=== PATIENT | male | born 1980 | race Caucasian/White ===

== ENCOUNTER → 2019-02-28 | Outpatient (CLI) | payer BC ==
--- NOTE | 2019-02-28 14:06 | ECHOS ---
STRESS ECHOCARDIOGRAM INDICATIONS.: Hypertension, chest pain. MEDICATIONS: Lisinopril, Montelukast, omeprazole, Claritin. BASELINE HEART RATE: 71 BASELINE BLOOD PRESSURE: 126/82 MAXIMUM HEART RATE: 162 MAXIMUM BLOOD PRESSURE: 187/68 85% MPHR: 155 100% MPHR: 182 METS: 11.5 MAXIMUM STAGE REACHED: 4 TOTAL EXERCISE TIME: 10:00 CLINICAL INFORMATION: Patient was exercised for a total period of 10 minutes. Peak heart rate of 162 was achieved. Maximum blood pressure of 187/68 mmHg was noted. Resting EKG shows normal sinus rhythm with normal HI interval and QRS duration and normal ST-T waves. No ST- segment depression suggestive of ischemia was noted. Occasional PVCs are noted. The baseline echocardiographic images reveals normal left ventricular chamber size with normal left ventricular systolic function in the immediate postexercise period, normal increase in the wall thickness and contractility is noted. FINAL IMPRESSION: This stress echocardiographic study is negative for stress-induced ischemia. EKG portion of the stress test is not suggestive of ischemia. Patient's exercise tolerance is normal. MMODL / IJN: [id number] /
== END | disposition home or self-care (01) ==
LOC: RADNMMAIN 09:16
PROVIDERS: ATTEND Internal Medicine
DX: R07.9 Chest pain, unspecified (principal)
CPT/HCPCS: 93351; Q9950

== ENCOUNTER → 2019-08-03 | Outpatient (CLI) | payer BC ==
--- NOTE | 2019-08-03 20:43 | XR ---
EXAMINATION TYPE: XR wrist complete RT DATE OF EXAM: 08/03/2019 COMPARISON: NONE HISTORY: 39-year-old male sprain of right wrist after fall 1.5 weeks ago. TECHNIQUE: 4 views FINDINGS: The radiocarpal and distal radial ulnar joint as well as the midcarpal compartment appear intact. No acute fracture, subluxation, or dislocation is seen. IMPRESSION: No acute osseous abnormality seen.
== END | disposition home or self-care (01) ==
LOC: RADXRMAIN 16:28
PROVIDERS: ATTEND Internal Medicine
DX: S63.501A Unspecified sprain of right wrist, initial encounter (principal)

== ENCOUNTER 2021-08-10 03:44 | Emergency (ER) | payer OTHER, BC ==
[2021-08-10 03:51] VITALS: RESP 18; TEMP 98.1
--- NOTE | 2021-08-10 06:40 | XR ---
EXAM: XR Left Elbow Complete, 3 or More Views CLINICAL HISTORY: ITS.REASON XR Reason: pain TECHNIQUE: Frontal, lateral and oblique views of the left elbow. COMPARISON: No relevant prior studies available. FINDINGS: Bones/joints: Unremarkable. No acute fracture. No dislocation. Soft tissues: Unremarkable. IMPRESSION: Normal left elbow x-rays.
--- NOTE | 2021-08-10 06:40 | XR ---
EXAM: XR Right Knee, 3 Views CLINICAL HISTORY: ITS.REASON XR Reason: pain TECHNIQUE: Three views of the right knee. COMPARISON: No relevant prior studies available. FINDINGS: Bones/joints: Unremarkable. No acute fracture. No dislocation. Soft tissues: Unremarkable. IMPRESSION: Normal right knee x-rays.
[2021-08-10] MEDS ORDERED: KETOROLAC 15 MG/ML 1 ML VIAL IM STA (06:57)
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
[2021-08-10 07:24] VITALS: BP 129/86; PULSE 65
== END 2021-08-10 07:27 | disposition home or self-care (01) ==
LOC: EC 03:44
DX: S86.911A Strain of unspecified muscle(s) and tendon(s) at lower leg level, right leg, initial encounter (principal); S53.402A Unspecified sprain of left elbow, initial encounter; I10 Essential (primary) hypertension; V49.60XA Unspecified car occupant injured in collision with unspecified motor vehicles in traffic accident, initial encounter
CPT/HCPCS: 73080; 73562; 99284; 96372; J1885

== ENCOUNTER → 2021-08-27 | Outpatient (CLI) | payer BC ==
--- NOTE | 2021-08-28 09:11 | CT ---
EXAMINATION TYPE: CT elbow LT wo con CT DLP: 223.3 mGycm, Automated exposure control for dose reduction was used. DATE OF EXAM: 08/27/2021 4:28 PM COMPARISON: None CLINICAL INDICATION:Male, 41 years old with history of M25.522 pain in left elbow, pain TECHNIQUE: Axial images were obtained of the left elbow without the use of IV contrast. Additional c oronal and sagittal reformatted images and soft tissue and bone window were obtained for review. 3-D reconstruction was created on a separate workstation. FINDINGS: There is no evidence of fracture, subluxation, or dislocation. No significant soft tissue swelling or joint effusion is identified. No focal muscular atrophy or edema is identified. No radiop aque foreign body identified. Sclerotic focus within the capitellum of the distal humerus consistent bony island. Mild osteophyte formation of the coronoid process of the ulna which extends towards the trochlea is approximately 1 to 2 mm away. IMPRESSION: Small osteophyte formation of the coronoid process of the ulna which is in close approximation to the trochlea. No additional findings to correlate with patient's pain. Consider evaluation with MRI elbo w for acute edema.
== END | disposition home or self-care (01) ==
LOC: RADCTMAIN 15:35
PROVIDERS: ATTEND Internal Medicine
DX: M25.722 Osteophyte, left elbow (principal)

== ENCOUNTER → 2021-10-22 | Outpatient (CLI) | payer BC ==
--- NOTE | 2021-10-23 04:05 | MR ---
EXAMINATION TYPE: MR ankle LT wo con DATE OF EXAM: 10/22/2021 COMPARISON: 02/18/2016 HISTORY: Left ankle pain and swelling for 8 years. Multiplanar multiecho imaging of the left ankle with no contrast. There is mild subcutaneous edema around the medial aspect of the ankle. Ankle mortise is anatomic. No fracture seen. The collateral ligaments appear intact. The Achilles tendon is intact. Plantar fascia appears intact. The medial and lateral flexor tendons a re intact. There is slight increased ankle joint fluid. No evidence of focal bone destruction. IMPRESSION: Slight increased joint fluid that could be minimal synovitis without change. Mild subcutaneous edema around the ankle. No evidence of ligament or tendon tear. No fracture.
== END | disposition home or self-care (01) ==
LOC: RADMRIMAIN 20:03
PROVIDERS: ATTEND Orthopaedic Surgery Foot and Ankle Surgery
DX: R60.0 Localized edema (principal)

== ENCOUNTER 2022-03-02 09:49 | Emergency (ER) | payer BC ==
[2022-03-02 10:18] VITALS: RESP 18; TEMP 97.6
--- NOTE | 2022-03-02 10:22 | ED ---
Dizziness HPI - General Chief Complaint: Dizziness Stated Complaint: Dizziness Time Seen by Provider: 03/02/22 10:12 Source: patient, family, RN notes reviewed Mode of arrival: wheelchair Limitations: no limitations - History of Present Illness Initial Comments: This is a 42 year old male who presents to the emergency department for dizziness beginning 2 days ago. States that when he woke up that morning he experienced a room spinning sensation. He proceeded to lay on his bathroom floor for 4 hours. He then took a nap later in the day and when he woke up, he had the room spinning sensation again with associated ear pressure and vomiting. He went to [facility] urgent care and was told that he had fluid in his ear, but no infection. He was prescribed meclizine with minor improvement. Also reports numbness on the side of both hands and feeling unsteady on his feet. He has been seeing a chiropractor for neck pain, and wonders if this is also related. His PCP instructed him to come to the emergency department. Denies any fevers, chills, sore throat, cough, dyspnea, chest pain, palpitations, abdominal pain, diarrhea, or headaches. MD Complaint: dizziness Onset/Timin -: days(s) Timing: awoke with symptoms Description: "room spinning" History of Same: No History of Trauma: No - Related Data Home Medications Medication Instructions Recorded Confirmed Atorvastatin Calcium [Lipitor] 40 mg PO DAILY 03/02/22 03/02/22 Meclizine [Antivert] 25 mg PO Q6H PRN 03/02/22 03/02/22 Montelukast Sodium [Singulair] 10 mg PO HS 03/02/22 03/02/22 lisinopriL [Prinivil] 10 mg PO HS 03/02/22 03/02/22 Previous Rx's Medication Instructions Recorded Metoclopramide [Reglan] 10 mg PO Q6H PRN #20 tab 03/02/22 Allergies Allergy/AdvReac Type Severity Reaction Status Date / Time No Known Allergies Allergy Verified 03/02/22 11:53 Review of Systems ROS Statement: Those systems with pertinent positive or pertinent negative responses have been documented in the HPI. ROS Other: All systems not noted in ROS Statement are negative. Past Medical History Past Medical History: Hypertension History of Any Multi-Drug Resistant Organisms: None Reported Past Surgical History: No Surgical Hx Reported Past Psychological History: No Psychological Hx Reported Smoking Status: Never smoker Past Alcohol Use History: Occasional Past Drug Use History: None Reported General Exam Limitations: no limitations General appearance: alert, in no apparent distress Head exam: Present: atraumatic, normocephalic, normal inspection Eye exam: Present: normal appearance, PERRL, EOMI, other (Horizontal nystagmus). Absent: scleral icterus, conjunctival injection, periorbital swelling Expanded TM/Canal exam: Effusion: Right TM, Left TM Respiratory exam: Present: normal lung sounds bilaterally. Absent: respiratory distress, wheezes, rales, rhonchi, stridor Cardiovascular Exam: Present: regular rate, normal rhythm, normal heart sounds. Absent: systolic murmur, diastolic murmur, rubs, gallop, clicks Neurological exam: Present: alert, oriented X3, CN II-XII intact Psychiatric exam: Present: normal affect, normal mood Skin exam: Present: warm, dry, intact, normal color. Absent: rash Course Vital Signs 03/02/22 03/02/22 03/02/22 10:14 12:11 13:50 Temperature 97.6 F Pulse Rate 83 84 60 Respiratory 18 18 18 Rate Blood Pressure 141/9 148/85 123/67 O2 Sat by Pulse 98 98 97 Oximetry EKG Findings - EKG Comments: EKG Findings:: Sinus rhythm. Ventricular rate 64 beats per minute, WI interval 144 ms, QRS duration 115 milliseconds, QTC 408 ms. Medical Decision Making - Medical Decision Making This is a 42-year-old male who presents to the emergency department for dizziness. Was pt. sent in by a medical professional or institution? @ -No Did you speak to anyone other than the patient for history? @ -His Did you review nursing and triage notes? @ -Agree, accurate with regards to the patient's symptoms. Were old charts reviewed? @ -No Differential Diagnosis? @ -Differential Dizziness: Benign paroxysmal positional Vertigo, Menieres disease, otitis media, acoustic neuroma, vertebrobasilar insufficiency, cerebellar stroke, encephalitis, hypovolemic, arrhythmia, coronary artery syndrome, anemia, this is not meant to be an all-inclusive list EKG interpreted by me (3pts min.)? @ -Sinus rhythm. Ventricular rate 64 bpm, WI interval 144 ms, QRS duration 115 milliseconds, QTC 408 ms. X-rays interpreted by me (1pt min.)? @ -Chest x-ray obtained, my interpretation reveals no localized consolidations or infiltrates. CT interpreted by me (1pt min.)? @ -Computed tomography scan of the brain and C-spine obtained. My inter pretation of the computed tomography scan of the brain identifies no signs of an acute intracranial hemorrhage or mass effect. Computed tomography scan of the C-spine identifies no acute fractures or dislocations. What testing was considered but not performed? (CT, X-rays, U/S, labs)? Why? @ -None What meds were considered but not given? Why? @ -None Did you discuss the management of the patient with other professionals? @ -No Did you reconcile home meds? @ -No Was smoking cessation discussed for >3mins.? @ -No Was critical care preformed (if so, how long)? @ -No Were there social determinants of health that impacted care today? How? (Homelessness, low income, unemployed, alcoholism, drug addiction, transportation, low edu. Level, literacy, decrease access to med. care, fpc, rehab)? @ -No Was there de-escalation of care discussed even if they declined? (Discuss DNR or withdrawal of care, Hospice)? @ -No What co-morbidities impacted this encounter? (DM, HTN, Smoking, COPD, CAD, Cancer, CVA, Hep., AIDS, mental health diagnosis, sleep apnea, morbid obesity)? @ -HTN Was patient admitted / discharged? @ -Discharged. Lab work obtained and found to be nonactionable. Chest x-ray and computed tomography scan of the brain and C-spine revealed no acute findings. Patient tested negative for Covid, influenza, and RSV. Patient does have bilateral ear effusion. He was given IV Reglan and Benadryl, which he states significantly improved his symptoms. The room spinning sensation, intermittent nature of his symptoms, ear effusion, and improvement with medication are consistent with benign positional paroxysmal vertigo. His HINTS exam was negative. Findings and symptoms are not consistent with a central lesion. Patient feels comfortable with discharge home. Prescription for Reglan provided with dosing instructions reviewed. He is instructed to continue taking the meclizine and using the Flonase nasal spray. He was given information for ENT follow-up in the event symptoms persist. We also discussed the half somersault maneuver by Dr. Lauren Greco for additional treatment options. Computed tomography scan of the neck does identify degenerative changes, and given the ongoing neck pain, information for orthopedic follow-up was provided as well. Drug Therapy requiring intensive monitoring for toxicity (Heparin, Nitro, Insulin, Cardizem)? @ -None Were any procedures done? @ -None Diagnosis/symptom? @ -BPPV Acute, or Chronic, or Acute on Chronic? @ -Acute Uncomplicated (without systemic symptoms) or Complicated (systemic symptoms)? @ -Complicated Side effects of treatment? @ -No side effects from medication at this time. Exacerbation, Progression, or Severe Exacerbation] @ -Not applicable Poses a threat to life or bodily function? @ -His symptoms are currently impacting his bodily function with the dizziness and vomiting. Diagnosis/symptom? @ -Neck pain Acute, or Chronic, or Acute on Chronic? @ -Chronic Uncomplicated (without systemic symptoms) or Complicated (systemic symptoms)? @ -Uncomplicated Side effects of treatment? @ -None Exacerbation, Progression, or Severe Exacerbation] @ -Not applicable Poses a threat to life or bodily function? @ -This may impact his ability to function depending on the severity of symptoms. This case was discussed in detail with the attending ED physician. Presentation, findings, and treatment plan discussed in detail as well. - Lab Data Result diagrams: 03/02/22 10:34 03/02/22 10:34 Lab Results 03/02/22 03/02/22 03/02/22 Range/Units 10:34 10:34 10:34 WBC 6.5 (3.8-10.6) k/uL RBC 5.21 (4.30-5.90) m/uL Hgb 14.8 (13.0-17.5) gm/dL Hct 44.3 (39.0-53.0) % MCV 84.9 (80.0-100.0) fL MCH 28.4 (25.0-35.0) pg MCHC 33.5 (31.0-37.0) g/dL RDW 13.0 (11.5-15.5) % Plt Count 306 (150-450) k/uL MPV 7.4 Neutrophils % 52 % Lymphocytes % 39 % Monocytes % 5 % Eosinophils % 2 % Basophils % 0 % Neutrophils # 3.4 (1.3-7.7) k/uL Lymphocytes # 2.5 (1.0-4.8) k/uL Monocytes # 0.3 (0-1.0) k/uL Eosinophils # 0.1 (0-0.7) k/uL Basophils # 0.0 (0-0.2) k/uL PT (9.0-12.0) sec INR (<1.2) Sodium 143 (137-145) mmol/L Potassium 4.0 (3.5-5.1) mmol/L Chloride 111 H (98-107) mmol/L Carbon Dioxide 26 (22-30) mmol/L Anion Gap 6 mmol/L BUN 8 L (9-20) mg/dL Creatinine 0.70 (0.66-1.25) mg/dL Est GFR (CKD-EPI)AfAm >90 (>60 ml/min/1.73 sqM) Est GFR (CKD-EPI)NonAf >90 (>60 ml/min/1.73 sqM) Glucose 94 (74-99) mg/dL Calcium 8.7 (8.4-10.2) mg/dL Total Bilirubin 0.4 (0.2-1.3) mg/dL AST 22 (17-59) U/L ALT 35 (4-49) U/L Alkaline Phosphatase 103 (38-126) U/L Troponin I (0.000-0.034) ng/mL Total Protein 6.7 (6.3-8.2) g/dL Albumin 3.9 (3.5-5.0) g/dL Urine Color Urine Appearance (Clear) Urine pH (5.0-8.0) Ur Specific [place] (1.001-1.035) Urine Protein (Negative) Urine Glucose (UA) (Negative) Urine Ketones (Negative) Urine Blood (Negative) Urine Nitrite (Negative) Urine Bilirubin (Negative) Urine Urobilinogen (<2.0) mg/dL Ur Leukocyte Esterase (Negative) Urine Opiates Screen (NotDetected) Ur Oxycodone Screen (NotDetected) Urine Methadone Screen (NotDetected) Ur Propoxyphene Screen (NotDetected) Ur Barbiturates Screen (NotDetected) U Tricyclic Antidepress (NotDetected) Ur Phencyclidine Scrn (NotDetected) Ur Amphetamines Screen (NotDetected) U Methamphetamines Scrn (NotDetected) U Benzodiazepines Scrn (NotDetected) Urine Cocaine Screen (NotDetected) U Marijuana (THC) Screen (NotDetected) Influenza Type A (PCR) Not Detected (Not Detectd) Influenza Type B (PCR) Not Detected (Not Detectd) RSV (PCR) Not Detected (Not Detectd) SARS-CoV-2 (PCR) Not Detected (Not Detectd) 03/02/22 03/02/22 03/02/22 Range/Units 10:34 10:34 12:23 WBC (3.8-10.6) k/uL RBC (4.30-5.90) m/uL Hgb (13.0-17.5) gm/dL Hct (39.0-53.0) % MCV (80.0-100.0) fL MCH (25.0-35.0) pg MCHC (31.0-37.0) g/dL RDW (11.5-15.5) % Plt Count (150-450) k/uL MPV Neutrophils % % Lymphocytes % % Monocytes % % Eosinophils % % Basophils % % Neutrophils # (1.3-7.7) k/uL Lymphocytes # (1.0-4.8) k/uL Monocytes # (0-1.0) k/uL Eosinophils # (0-0.7) k/uL Basophils # (0-0.2) k/uL PT 10.4 (9.0-12.0) sec INR 1.0 (<1.2) Sodium (137-145) mmol/L Potassium (3.5-5.1) mmol/L Chloride (98-107) mmol/L Carbon Dioxide (22-30) mmol/L Anion Gap mmol/L BUN (9-20) mg/dL Creatinine (0.66-1.25) mg/dL Est GFR (CKD-EPI)AfAm (>60 ml/min/1.73 sqM) Est GFR (CKD-EPI)NonAf (>60 ml/min/1.73 sqM) Glucose (74-99) mg/dL Calcium (8.4-10.2) mg/dL Total Bilirubin (0.2-1.3) mg/dL AST (17-59) U/L ALT (4-49) U/L Alkaline Phosphatase (38-126) U/L Troponin I <0.012 (0.000-0.034) ng/mL Total Protein (6.3-8.2) g/dL Albumin (3.5-5.0) g/dL Urine Color Yellow Urine Appearance Clear (Clear) Urine pH 5.5 (5.0-8.0) Ur Specific [place] 1.018 (1.001-1.035) Urine Protein Negative (Negative) Urine Glucose (UA) Negative (Negative) Urine Ketones Negative (Negative) Urine Blood Negative (Negative) Urine Nitrite Negative (Negative) Urine Bilirubin Negative (Negative) Urine Urobilinogen <2.0 (<2.0) mg/dL Ur Leukocyte Esterase Negative (Negative) Urine Opiates Screen Not Detected (NotDetected) Ur Oxycodone Screen Not Detected (NotDetected) Urine Methadone Screen Not Detected (NotDetected) Ur Propoxyphene Screen Not Detected (NotDetected) Ur Barbiturates Screen Not Detected (NotDetected) U Tricyclic Antidepress Not Detected (NotDetected) Ur Phencyclidine Scrn Not Detected (NotDetected) Ur Amphetamines Screen Not Detected (NotDetected) U Methamphetamines Scrn Not Detected (NotDetected) U Benzodiazepines Scrn Detected H (NotDetected) Urine Cocaine Screen Not Detected (NotDetected) U Marijuana (THC) Screen Not Detected (NotDetected) Influenza Type A (PCR) (Not Detectd) Influenza Type B (PCR) (Not Detectd) RSV (PCR) (Not Detectd) SARS-CoV-2 (PCR) (Not Detectd) - Radiology Data Radiology results: report reviewed, image reviewed Disposition Clinical Impression: BPPV (benign paroxysmal positional vertigo) Disposition: HOME SELF-CARE Instructions (If sedation given, give patient instructions): Vertigo (ED), Benign Paroxysmal Positional Vertigo (ED), Dizziness (ED) Additional Instructions: Return to the emergency department with any new, worsening, or concerning symptoms. Continue to use the meclizine for the vertigo, this can be used in conjunction with the Reglan. You should also continue to use the Flonase nasal spray 1-2 times daily. You can contact the orthopedic provider, Dr. Dangelo, as listed below regarding the problems with your neck. Dr. Joyce is the ear nose and throat provider you may contact to help with the vertigo. You can look up the half somersault maneuver by Dr. Lauren Greco for additional treatment options. Follow up with your primary care provider in 1-2 days. Prescriptions: Metoclopramide [Reglan] 10 mg PO Q6H PRN #20 tab PRN Reason: Vertigo Is patient prescribed a controlled substance at d/c from ED?: No Referrals: Darinel Sosa MD [Primary Care Provider] - 1-2 days Samantha Dangelo DO [Doctor of Osteopathic Medicine] - 1-2 days Roger Castro MD [STAFF PHYSICIAN] - 1-2 days
[2022-03-02 10:57] LABS: Basophils % (A) 0 %; Eosinophils # (A) 0.1 k/uL (0-0.7); Eosinophils % (A) 2 %; HCT 44.3 % (39.0-53.0); HGB 14.8 gm/dL (13.0-17.5); Lymphocytes # (A) 2.5 k/uL (1.0-4.8); Lymphocytes % (A) 39 %; MCH 28.4 pg (25.0-35.0); MCHC 33.5 g/dL (31.0-37.0); MCV 84.9 fL (80.0-100.0); Mean Platelet Volume 7.4; Monocytes # (A) 0.3 k/uL (0-1.0); Monocytes % (A) 5 %; Neutrophils # (A) 3.4 k/uL (1.3-7.7); Neutrophils % (A) 52 %; Platelet Count 306 k/uL (150-450); RBC 5.21 m/uL (4.30-5.90); WBC 6.5 k/uL (3.8-10.6)
--- NOTE | 2022-03-02 11:07 | XR ---
EXAMINATION TYPE: XR chest 2V DATE OF EXAM: 03/02/2022 11:02 AM COMPARISON: None TECHNIQUE: XR chest 2V Frontal and lateral views of the chest. CLINICAL INDICATION:Male, 42 years old with history of dizziness; FINDINGS: Lungs/Pleura: There is no evidence of pleural effusion, focal consolidation, or pneumothorax. Pulmonary vascularity: Unremarkable. Heart/mediastinum: Cardiomediastinal silhouette is unremarkable. Musculoskeletal: No acute osseous pathology. IMPRESSION: No acute cardiopulmonary disease/process.
[2022-03-02 11:09] LABS: ALT 35 U/L (4-49); AST 22 U/L (17-59); African American GFR (CKD) >90 (>60 ml/min/1.73 sqM); Albumin 3.9 g/dL (3.5-5.0); Alkaline Phosphatase 103 U/L (38-126); Anion Gap 6 mmol/L; Blood Urea Nitrogen 8 mg/dL (9-20); Calcium 8.7 mg/dL (8.4-10.2); Carbon Dioxide 26 mmol/L (22-30); Chloride 111 mmol/L (98-107); Glucose 94 mg/dL (74-99); Non-African American GFR(CKD) >90 (>60 ml/min/1.73 sqM); Sodium 143 mmol/L (137-145); Total Bilirubin 0.4 mg/dL (0.2-1.3); Total Protein 6.7 g/dL (6.3-8.2)
[2022-03-02 11:11] LABS: Prothrombin Time 10.4 sec (9.0-12.0)
[2022-03-02] MEDS ORDERED: diphenhydrAMINE 50 MG/ML 1 ML VIAL IVP STA (11:35)
[2022-03-02] MEDS ORDERED: METOCLOPRAMIDE 5 MG/ML 2 ML VIAL IVP STA (11:35)
--- NOTE | 2022-03-02 12:15 | CT ---
EXAMINATION TYPE: CT brain cspine wo con CT DLP: 1885.1 mGycm, Automated exposure control for dose reduction was used. DATE OF EXAM: 03/02/2022 12:03 PM COMPARISON: None CLINICAL INDICATION:Male, 42 years old with history of dizziness; Dizziness and right side head/ear p ressure TECHNIQUE: Brain: Multiple axial CT images of the brain were obtained without IV contrast. Cspine: Axial CT images from the skull base to the inferior aspect of T2 we obtained without intraven ous contrast. Coronal and sagittal reformatted images were also reviewed. FINDINGS: Brain: Extra-axial spaces: No abnormal extra-axial fluid collections. Ventricular system: Within normal limits Cerebral parenchyma: No acute intraparenchymal hemorrhage or mass effect. The tran-white junction is well differentiated. Cerebellum: Unremarkable. Mass effect: No evidence of midline shift. Intracranial vasculature: unremarkable Soft tissues: Normal. Calvarium/osseous structures: No depressed skull fracture. Paranasal sinuses and mastoid air cells: Mild mucosal thickening most pronounced in the right maxilla ry sinus. Visualized orbits: Orbital contents are intact. Cervical spine: Fracture: None. Osseous structures: Minimal degeneration with osteophyte formation and facet and uncovertebral joint arthropathy. Vertebral alignment: Within normal limits. Spinal canal/Neural Foramina: No evidence of significant spinal canal narrowing. No evidence for sign ificant neural foraminal stenosis. Neck soft tissues: Prevertebral soft tissues are within normal limits. Other: The airway is patent. The lung apices are clear. IMPRESSION: 1. No acute intracranial process. No evidence for acute right temporal bone process. 2. No evidence of cervical spine fracture. 3. Mild multilevel degenerative disc disease.
[2022-03-02 12:45] LABS: Appearance,Urine Clear (Clear); Bilirubin,Urine Negative (Negative); Blood,Urine Negative (Negative); Color,Urine Yellow; Glucose,Urine (UA) Negative (Negative); Ketones,Urine Negative (Negative); Leukocyte Esterase,Urine Negative (Negative); Nitrite,Urine Negative (Negative); PH, Urine 5.5 (5.0-8.0); Protein,Urine Negative (Negative); Specific Gravity,Urine 1.018 (1.001-1.035); Urobilinogen,Urine <2.0 mg/dL (<2.0)
[2022-03-02 13:11] LABS: Amphetamine Screen,Urine Not Detected (NotDetected); Barbiturate Screen,Urine Not Detected (NotDetected); Benzodiazepines Screen,Urine Detected (NotDetected); Cocaine Screen,Urine Not Detected (NotDetected); Methadone Screen, Urine Not Detected (NotDetected); Opiate Screen,Urine Not Detected (NotDetected); Oxycodone Screen, Urine Not Detected (NotDetected); Phencyclidine Screen,Urine Not Detected (NotDetected); Tricyclic Antidepressant,Urine Not Detected (NotDetected); Urn Cannabinoid Scrn Not Detected (NotDetected)
[2022-03-02 13:51] VITALS: BP 123/67; PULSE 60
== END 2022-03-02 13:51 | disposition home or self-care (01) ==
LOC: EC 09:49
DX: H81.10 Benign paroxysmal vertigo, unspecified ear (principal); I10 Essential (primary) hypertension; Z79.899 Other long term (current) drug therapy; Z20.822 Contact with and (suspected) exposure to COVID-19
CPT/HCPCS: 36415; 93005; 80053; 84484; 85025; 85610; 81003; 80306; 87636; 71046; 72125; 70450; 99284; 96374; 96375; J1200; J2765

== ENCOUNTER → 2022-09-28 | Outpatient (CLI) | payer BC | END | disposition home or self-care (01) | LOC: LABWHC1 15:26 | PROVIDERS: ATTEND Internal Medicine | DX: Z01.810 Encounter for preprocedural cardiovascular examination (principal) | CPT/HCPCS: 36415; 85730 ==

== ENCOUNTER → 2022-10-08 | Outpatient (CLI) | payer BC | LOC: 3 N SLEEP 16:59 | PROVIDERS: ATTEND Internal Medicine Critical Care Medicine | DX: G47.10 Hypersomnia, unspecified (principal) ==

== ENCOUNTER → 2023-06-10 | Outpatient (CLI) | payer BC ==
--- NOTE | 2023-06-10 17:17 | CA ---
Transthoracic Echo Report Name: Bebeto Mackey Age: 43 Gender: M : 1980 Exam Date: 06/10/2023 15:11 Exam Location: [facility] Ht (in): 72 Wt (lb): 236 Ordering Physician: Darinel Sosa MD Attending/Referring Phys: Darinel Sosa MD Tabulating Machine Mechanic Ruby Ramires RDCS Procedure CPT: Indications: G45.9 TRANSIENT CEREBRAL ISCHEMIC ATTACK, UNSPECIF Cardiac Hx: Technical Quality: Fair Contrast 1: Total Dose (mL): Contrast 2: Total Dose (mL): MEASUREMENTS (Male / Female) Normal Values 2D ECHO LV Diastolic Diameter PLAX 4.3 cm 4.2 - 5.9 / 3.9 - 5.3 cm LV Systolic Diameter PLAX 3.0 cm IVS Diastolic Thickness 1.4 cm 0.6 - 1.0 / 0.6 - 0.9 cm LVPW Diastolic Thickness 1.4 cm 0.6 - 1.0 / 0.6 - 0.9 cm LV Relative Wall Thickness 0.6 RV Internal Dim ED PLAX 2.6 cm LA Volume 60.1 cm??? 18 - 58 / 22 - 52 cm??? LA Volume Index 25.4 cm???/m??? 16 - 28 cm???/m??? M-MODE Aortic Root Diameter MM 3.6 cm LA Systolic Diameter MM 4.0 cm LA Ao Ratio MM 1.1 DOPPLER AV Peak Velocity 141.1 cm/s AV Peak Gradient 8.0 mmHg AV Mean Velocity 85.0 cm/s AV Mean Gradient 3.4 mmHg AV Velocity Time Integral 22.3 cm LVOT Peak Velocity 116.4 cm/s LVOT Peak Gradient 5.4 mmHg LVOT Velocity Time Integral 25.5 cm MV Area PHT 3.1 cm??? Mitral E Point Velocity 99.6 cm/s Mitral A Point Velocity 56.7 cm/s Mitral E to A Ratio 1.8 MV Deceleration Time 245.3 ms MV E' Velocity 10.1 cm/s Mitral E to MV E' Ratio 9.9 TR Peak Velocity 209.7 cm/s TR Peak Gradient 17.6 mmHg Right Ventricular Systolic Press 21.2 mmHg FINDINGS Left Ventricle Moderatly increased left ventricular wall thickness. Left ventricular cavity size normal. Normal left ventricular systolic function with no obvious regional wall motion abnormalities. Left ventricular ejection fraction is estimated at 55-60 %. Grade 1 diastolic dysfunction. Right Ventricle Normal right ventricular size and function. Right ventricular systolic pressure within normal limits. Right Atrium Normal right atrial size. Left Atrium Mildly increased left atrial volume. Mitral Valve Structurally normal mitral valve. Mild mitral regurgitation. Aortic Valve Trileaflet aortic valve. No aortic valve stenosis or regurgitation. Tricuspid Valve Structurally normal tricuspid valve. Mild tricuspid regurgitation. Pulmonic Valve Trace pulmonic regurgitation. Pericardium No pericardial effusion. Aorta Normal size aortic root and proximal ascending aorta. CONCLUSIONS Left ventricular hypertrophy with normal LV function Mild left atrial enlargement Mild mitral regurgitation Previewed by: Dr. Carlos Manuel Carson MD (Electronically Signed) Final Date: 10 June 2023 17:17
--- NOTE | 2023-06-10 18:33 | US ---
EXAMINATION TYPE: US carotid duplex BILAT DATE OF EXAM: 06/10/2023 COMPARISON: NONE CLINICAL INDICATION: Male, 43 years old with history of G45.9 TRANSIENT CEREBRAL ISCHEMIC ATTACK, UNS PECIF; TIA TECHNIQUE: Carotid duplex ultrasound examination. Indirect Doppler criteria was utilized. FINDINGS: EXAM MEASUREMENTS: RIGHT: Peak Systolic Velocity (PSV) cm/sec ----- Right CCA: 90 ----- Right ICA: 104.9 ----- Right ECA: 89.1 ICA/CCA ratio: 1.2 RIGHT: End Diastole cm/sec ----- Right CCA: 21.7 ----- Right ICA: 20.1 ----- Right ECA: 12.2 LEFT: Peak Systolic Velocity (PSV) cm/sec ----- Left CCA: 96.9 ----- Left ICA: 65.4 ----- Left ECA: 75.3 ICA/CCA ratio: 0.7 LEFT: End Diastole cm/sec ----- Left CCA: 22.1 ----- Left ICA: 20.1 ----- Left ECA: 10.2 VERTEBRALS (direction of flow): Right Vertebral: Antegrade Left Vertebral: Antegrade Rhythm: Normal TECHNICAL SUPPORT MANAGER NOTES: No significant stenosis seen IMPRESSION: 1. No carotid bifurcation plaque formation. 2. No hemodynamically significant stenosis based on peak systolic velocities and ratios as well as co mikayla and grayscale imaging of the carotid bifurcations. Criteria for Assigning % of Stenosis / Diameter reduction (Estimation based on the indirect measurements of the internal carotid artery velocities (ICA PSV). 1. Normal (no stenosis)=ICA PSV < 125 cm/s: ratio < 2.0: ICA EDV<40 cm/s. 2. Less than 50% stenosis=ICA PSV < 125 cm/s: ratio < 2.0: ICA EDV<40 cm/s. 3. 50 to 69% stenosis=ICA PSV of 125 to 230 cm/s: ration 2.0 ? 4.0: ICA EDV 40-100 cm/s. 4. Greater than 70% stenosis to near occlusion= ICA PSV > 230 cm/s: ratio > 4.0: ICA EDV > 100 cm/s. 5. Near occlusion= ICA PSV velocities may be low or undetectable: variable ratio and ICA EDV. 6. Total occlusion=unable to detect flow.
== END | disposition home or self-care (01) ==
LOC: RADECHMAIN 15:02
PROVIDERS: ATTEND Internal Medicine
DX: G45.9 Transient cerebral ischemic attack, unspecified (principal); I34.0 Nonrheumatic mitral (valve) insufficiency; I51.7 Cardiomegaly
CPT/HCPCS: 93306; 93880

== ENCOUNTER 2023-07-04 22:09 | Emergency (ER) | payer BC ==
--- NOTE | 2023-07-04 22:25 | ED ---
General Adult HPI - General Chief complaint: Eye Problems Stated complaint: R eye injury Time Seen by Provider: 07/04/23 22:24 Source: patient, RN notes reviewed, old records reviewed Mode of arrival: ambulatory Limitations: no limitations - History of Present Illness Initial comments: 43-year-old male presenting for evaluation of foreign body to the right eye. Patient is otherwise healthy, tetanus is up-to-date. Patient was putting together 2 parts with superglue, when he hammered the magnets together a drop of superglue went directly into his right eye. No metallic foreign body according to the patient. Patient states he can see the superglue when he looks through his right eye. - Related Data Home Medications Medication Instructions Recorded Confirmed Atorvastatin Calcium [Lipitor] 40 mg PO DAILY 03/02/22 03/02/22 Meclizine [Antivert] 25 mg PO Q6H PRN 03/02/22 03/02/22 Montelukast Sodium [Singulair] 10 mg PO HS 03/02/22 03/02/22 lisinopriL [Prinivil] 10 mg PO HS 03/02/22 03/02/22 Previous Rx's Medication Instructions Recorded Metoclopramide [Reglan] 10 mg PO Q6H PRN #20 tab 03/02/22 Erythromycin Ophth Oint [Romycin 1 applic RIGHT EYE QID #3.5 gm 07/04/23 Ophth Oint] Allergies Allergy/AdvReac Type Severity Reaction Status Date / Time No Known Allergies Allergy Verified 03/02/22 11:53 Review of Systems ROS Statement: Those systems with pertinent positive or pertinent negative responses have been documented in the HPI. ROS Other: All systems not noted in ROS Statement are negative. Past Medical History Past Medical History: Hypertension History of Any Multi-Drug Resistant Organisms: None Reported Past Surgical History: Hernia Repair Past Psychological History: No Psychological Hx Reported Smoking Status: Never smoker Past Alcohol Use History: Occasional Past Drug Use History: None Reported General Exam Limitations: no limitations General appearance: alert, in no apparent distress Head exam: Present: atraumatic, normocephalic Eye exam: Present: PERRL, EOMI, other (Droplet of glue central cornea and 1 linear abrasion across the central cornea, negative Davy's test) Respiratory exam: Present: normal lung sounds bilaterally. Absent: respiratory distress, wheezes Cardiovascular Exam: Present: regular rate, normal rhythm GI/Abdominal exam: Absent: distended Course Vital Signs 07/04/23 22:21 Temperature 98 F Pulse Rate 89 Respiratory 18 Rate Blood Pressure 154/93 O2 Sat by Pulse 97 Oximetry Procedures - Forgein Body Removal Eye Site: Right Location in eye(s): Central cornea Anesthetic Used: Proparacaine Eye Exam Technique: Fluorescein Foreign Body Suspected: Other (Superglue) Forgein Body Removal Technique: Cotton Swab, Irrigation Remaining Debris: No Patient Tolerated: well Medical Decision Making - Medical Decision Making Was pt. sent in by a medical professional or institution (, [facility], [facility], urgent care, hospital, or care home...) When possible be specific @ -No Did you speak to anyone other than the patient for history (EMS, parent, family, police, friend...)? What history was obtained from this source @ -No Did you review nursing and triage notes (agree or disagree)? Why? @ -I reviewed and agree with nursing and triage notes Were old charts reviewed (outside hosp., previous admission, EMS record, old EKG, old radiological studies, urgent care reports/EKG's, care home records)? Report findings @ -No old charts were reviewed Differential Diagnosis : Corneal abrasion, eye foreign body, corneal laceration @ -Not applicable EKG interpreted by me (3pts min.). @ -As above X-rays interpreted by me (1pt min.). @ -None done CT interpreted by me (1pt min.). @ -None done U/S interpreted by me (1pt. min.). @ -None done What testing was considered but not performed or refused? (CT, X-rays, U/S, labs)? Why? @ -None What meds were considered but not given or refused? Why? @ -None Did you discuss the management of the patient with other professionals (professionals i.e. , [facility], [facility], lab, RT, psych nurse, psychiatric social worker, dairy manager, teacher, combatant diver officer, binder caser)? Give summary @ -No Was smoking cessation discussed for >3mins.? @ -No Was critical care preformed (if so, how long)? @ -No Were there social determinants of health that impacted care today? How? (Homelessness, low income, unemployed, alcoholism, drug addiction, transportation, low edu. Level, literacy, decrease access to med. care, skilled nursing, rehab)? @ -No Was there de-escalation of care discussed even if they declined (Discuss DNR or withdrawal of care, Hospice)? DNR status @ -No What co-morbidities impacted this encounter? (DM, HTN, Smoking, COPD, CAD, Cancer, CVA, ARF, Chemo, Hep., AIDS, mental health diagnosis, sleep apnea, morbid obesity)? @ -None Was patient admitted / discharged? Hospital course, mention meds given and route, prescriptions, significant lab abnormalities, going to OR and other pertinent info. @43-year-old male with superglue to the right eye. The eye is anesthetized with proparacaine, fluorescein does reveal foreign body which is removed easily with irrigation and cotton swab. There is a very superficial abrasion across the central cornea. Patient is placed on antibiotic ointment. He is given ophthalmology follow-up. Undiagnosed new problem with uncertain prognosis? @ -No Drug Therapy requiring intensive monitoring for toxicity (Heparin, Nitro, Insulin, Cardizem)? @ -No Were any procedures done? @ -Yes, foreign body removal from right eye. Diagnosis/symptom? @ -Eye foreign body, corneal abrasion Acute, or Chronic, or Acute on Chronic? @ -[Acute Uncomplicated (without systemic symptoms) or Complicated (systemic symptoms)? @ -Default Side effects of treatment? @ -No Exacerbation, Progression, or Severe Exacerbation? @ -No Poses a threat to life or bodily function? How? (Chest pain, [place], [place], pneumonia, PE, COPD, DKA, ARF, appy, cholecystitis, CVA, Diverticulitis, Homicidal, Suicidal, threat to staff... and all critical care pts) @ -No Disposition Clinical Impression: Corneal abrasion, Foreign body of cornea Disposition: HOME SELF-CARE Instructions (If sedation given, give patient instructions): Eye Foreign Body (ED), Abrasion (ED) Prescriptions: Erythromycin Ophth Oint [Romycin Ophth Oint] 1 applic RIGHT EYE QID #3.5 gm Is patient prescribed a controlled substance at d/c from ED?: No Referrals: Darinel Sosa MD [Primary Care Provider] - 1-2 days Miladis White MD [STAFF PHYSICIAN] - 1-2 days Time of Disposition: 22:44
[2023-07-04] MEDS: PROPARACAINE 0.5% OPHTH DROPS 15 ML BTL RIGHT EYE STA (22:32)
[2023-07-04] MEDS: FLUORESCEIN STRIPS 1 MG STRIP RIGHT EYE ONE (22:32)
[2023-07-04] MEDS: ERYTHROMYCIN 5 MG/GM OPHTH OINT 1 GM TUBE RIGHT EYE STA (22:54)
[2023-07-04 23:45] VITALS: BP 154/93; PULSE 89; RESP 18; TEMP 98
== END 2023-07-04 22:56 | disposition home or self-care (01) ==
LOC: EC 22:09
DX: T15.01XA Foreign body in cornea, right eye, initial encounter (principal); X58.XXXA Exposure to other specified factors, initial encounter
CPT/HCPCS: 65220; 99283

== ENCOUNTER → 2023-09-20 | Outpatient (CLI) | payer BC ==
--- NOTE | 2023-09-21 07:26 | XR ---
EXAMINATION TYPE: XR shoulder complete RT DATE OF EXAM: 09/20/2023 CLINICAL HISTORY: pain TECHNIQUE: Three views of the right shoulder are obtained. COMPARISON: None FINDINGS: There is no acute fracture/dislocation evident. The acromioclavicular and glenohumeral sally int spaces appear within normal limits. The visualized ribs are intact and unremarkable. IMPRESSION: 1. There is no acute fracture or dislocation. ICD 10 NO FRACTURE, INITIAL EVALUATION
--- NOTE | 2023-09-21 07:36 | XR ---
EXAMINATION TYPE: XR cervical spine w flex/ext DATE OF EXAM: 09/20/2023 TECHNIQUE: Frontal, lateral, oblique, swimmers, and open mouth view of the cervical spine are obtaine d. Additional flexion and extension views obtained. HISTORY: M54.2 CERVICALGIA COMPARISON: None FINDINGS: The cervical spine is visualized in its entirety from C1 thru the top of T1 level, it is s atisfactory in alignment without evidence of acute fracture or dislocation. The pre-vertebral soft t issue appears within normal limits. The C1-C2 articulation is within normal limits on the open mouth view. The oblique images are within normal limits. IMPRESSION: No acute fracture or dislocation is seen in the cervical spine.
== END | disposition home or self-care (01) ==
LOC: RADXRMAIN 15:36
PROVIDERS: ATTEND Internal Medicine
DX: M54.2 Cervicalgia (principal); M25.511 Pain in right shoulder
CPT/HCPCS: 72052

== ENCOUNTER → 2023-10-27 | Outpatient (CLI) | payer BC ==
--- NOTE | 2023-10-27 13:58 | XR ---
EXAMINATION TYPE: XR lumbar spine 2 or 3V DATE OF EXAM: 10/27/2023 1:38 PM CLINICAL INDICATION: Male, 43 years old with history of M54.41 LUMBAGO WITH SCIATICA,RT SIDE; PHH COMPARISON: None TECHNIQUE: XR lumbar spine 2 or 3V - Frontal, lateral and coned in L5-S1 lateral views of the spine. FINDINGS: No evidence of any acute osseous pathology. No evidence of loss of vertebral body height i s seen. There is normal alignment of the lumbar vertebral bodies. Scattered disc space narrowing. Mul tilevel marginal osteophyte formation throughout the visualized spine. There is facet joint arthropat hy throughout the spine. Scattered at least mild neural foraminal stenosis. IMPRESSION: 1. No acute fracture. 2. Mild multilevel disc degeneration.
== END | disposition home or self-care (01) ==
LOC: RADXRMAIN 13:14
PROVIDERS: ATTEND Registered Nurse
DX: M51.16 Intervertebral disc disorders with radiculopathy, lumbar region (principal)
CPT/HCPCS: 72100

== ENCOUNTER → 2023-11-09 | Outpatient (CLI) | payer BC ==
--- NOTE | 2023-11-12 10:58 | US ---
EXAMINATION TYPE: US abdomen complete DATE OF EXAM: 11/09/2023 COMPARISON: NONE CLINICAL INDICATION: Male, 43 years old with history of R10.10 UPPER ABDOMINAL PAIN, UNSPECIFIED; RUQ pain TECHNIQUE: Multiple sonographic images of the abdomen are obtained. Some limitation due to scanning f ields available. FINDINGS: EXAM MEASUREMENTS: Liver Length: 16.1 cm Gallbladder Wall: 0.3 cm CBD: 0.4 cm Spleen: 10.5 cm Right Kidney: 10.9 x 6.7 x 5.9 cm Left Kidney: 11.5 x 5.6 x 5.7 cm Pancreas: obscured by overlying midline bowel gas Liver: scanned intercostally, visualized portions wnl Gallbladder: wnl Evidence for sonographic Paulino's sign: no CBD: visualized portions wnl, limited by overlying bowel gas Spleen: visualized portions wnl, limited by overlying bowel gas Right Kidney: wnl Left Kidney: wnl Upper IVC: wnl Abd Aorta: proximal and mid portions obscured by overlying midline bowel gas, distal portion appears wnl IMPRESSION: 1. No suspicious abdomen ultrasound abnormality [facility], , 11/12/2023 10:56 AM
== END | disposition home or self-care (01) ==
LOC: RADUSWWP 07:45
PROVIDERS: ATTEND Surgery
DX: R10.11 Right upper quadrant pain (principal)
CPT/HCPCS: 76700

== ENCOUNTER → 2023-11-22 | Outpatient (CLI) | payer BC ==
--- NOTE | 2023-11-22 15:50 | NM ---
EXAMINATION TYPE: NM hepatobiliary w EF DATE OF EXAM: 11/22/2023 3:26 PM COMPARISON: Ultrasound 11/09/2023 CLINICAL INDICATION:Male, 43 years old with history of R10.13 epigastric pain; TECHNIQUE: The patient was given 4.98 mCi of Technetium 99m-Mebrofenin as a radiotracer and multiple scintigraphic images were obtained of the abdomen. Gallbladder function was also assessed after the administration of ensure drink and additional scintigraphic images were obtained of the abdomen. A re gion of interest was drawn over the gallbladder and a timing activity curve was generated. The gallbl adder ejection fraction was calculated. FINDINGS: Normal uptake of radiotracer was identified within the liver with excretion into the hepatic and comm on biliary ducts within 240 seconds. There was normal progressive washout of the liver over the cours e of the study. Radiotracer uptake within the gallbladder at 240 minutes as well as small bowel activ ity was identified at 56 minutes. Maximum calculated gallbladder ejection fraction is: 67% at 30 minutes (Normal gallbladder ejection fraction is > 35%) IMPRESSION: 1. Normal hepatobiliary scan. 2. Normal ejection fraction. [facility], , 11/22/2023 3:48 PM
== END | disposition home or self-care (01) ==
LOC: RADNMMAIN 13:17
PROVIDERS: ATTEND Surgery
DX: R10.13 Epigastric pain (principal)
CPT/HCPCS: 78226